=== PATIENT | female | born 1965 | race Caucasian/White ===

== ENCOUNTER 2017-02-19 18:26 | Inpatient (IN) ==
[2017-02-19 19:32] LABS: Bilirubin,Urine Negative (Negative); Blood,Urine Negative (Negative); Clarity,Urine Clear (Clear); Color,Urine Yellow (Yellow); Glucose,Urine (UA) 500 mg/dL (Normal); Ketones,Urine Negative (Negative); Leukocyte Esterase,Urine Negative (Negative); Nitrite,Urine Negative (Negative); Protein,Urine Negative (Neg-Trace); Specific Gravity,Urine 1.018 (1.010-1.025); Urobilinogen,Urine Normal (Normal)
--- NOTE | 2017-02-19 19:34 | Emergency Department Note ---
Disposition Clinical Impression: Depression, Acute anxiety, Suicidal ideation, Anemia, Abnormal liver function tests, Diabetes Disposition: Admitted As Inpatient Referrals: NONE,PCP [Primary Care Provider] - Forms: ED Satisfaction Letter General Adult HPI - General Chief complaint: ED Psychiatric Symptoms Stated complaint: SI/DEPRESSION Time Seen by Provider: 02/19/17 19:33 Source: patient Limitations: no limitations - History of Present Illness HPI Narrative: 51-year-old female reports emergency department complaining of increasing anxiety and depression. The patient reports that she takes several psychiatric medications currently. She reports she has been more anxious and depressed over the last few days. She has been chronically depressed secondary to the of her son about 1 year ago. She feels like she may harm herself but denies any acute physical injury or overdose. There is no history of acute physical complaint. No chest pain charts breath or abdominal pain or vomiting diarrhea or any trouble walking talking hearing seeing or speaking noted or reported. She is 51, there is no history of at this time. The patient lives with her who is at work, he no she is here. She is here with a friend. Pain Scale: 0 - Related Data Home Medications Medication Instructions Recorded Confirmed Buspirone [Buspar] 15 mg PO BID 04/28/15 07/15/15 Citalopram [CeleXA] 40 mg PO QAM 04/28/15 07/15/15 Gabapentin 300 mg PO TID 07/15/15 07/15/15 Lansoprazole [Prevacid] 30 mg PO BID 07/15/15 07/15/15 Lisinopril/Hydrochlorothiazide 1 tab PO QAM 07/15/15 07/15/15 [Lisinopril-Hctz 20-25 mg Tab] Melatonin [Melatin] 6 mg PO HS 07/15/15 07/15/15 Metformin HCl 500 mg PO QAM 07/15/15 07/15/15 Trazodone HCl [Oleptro ER] 150 mg PO HS 07/15/15 07/15/15 Previous Rx's Medication Instructions Recorded ARIPiprazole [Abilify] 2 mg PO DAILY 30 Days tablet 07/19/15 hydrOXYzine pamoate [HydrOXYzine 25 mg PO TID PRN 30 Days capsule 07/19/15 Pamoate] Allergies Allergy/AdvReac Type Severity Reaction Status Date / Time lamotrigine [From Lamictal] Allergy Rash Verified 04/28/15 12:28 quetiapine [From Seroquel] AdvReac See Verified 04/28/15 16:24 Comments All systems ED: reviewed and negative except as stated. Past Medical History - Past Medical History Medical history: Reports: cancer, diabetes, hypertension, other Surgical history: Reports: breast surgery Psychiatric history: Reports: anxiety, depression BIOLOGY MANAGER history: Reports: no BIOLOGY MANAGER history - Social History Smoking Status: Never smoker Smokeless Tobacco Status: No Alcohol use: Reports: none Drug use: Reports: none Physical Exam - General Limitations: no limitations General appearance: alert, anxious - Head Head exam: atraumatic, normocephalic, normal inspection - Eye Eye exam: Present: normal appearance, PERRL, EOMI. Absent: scleral icterus, conjunctival injection - ENT ENT exam: normal exam, normal oropharynx, mucous membranes moist, normal external ear exam - Neck Neck exam: Present: normal inspection, full ROM, trachea midline - Chest Chest inspection: Present: symmetric chest wall rise. Absent: tenderness - Respiratory Respiratory exam: Present: normal lung sounds bilaterally. Absent: respiratory distress, wheezes, stridor, accessory muscle use, prolonged expiratory phase - Cardiovascular Cardiovascular exam: Present: regular rate, normal rhythm, normal heart sounds - Abdominal Exam Abdominal exam: Present: soft, Non-Tender, normal bowel sounds. Absent: tenderness, distention, guarding, rebound, rigidity, Clement's sign, Rovsing's sign, tenderness at McBurney's Point, ascites - Extremities Exam Extremities exam: Present: normal inspection, full ROM, normal capillary refill. Absent: tenderness, pedal edema, joint swelling, calf tenderness - Expanded Lower Extremity Exam Neurovascular/Tendon exam: Present: normal capillary refill. Absent: motor deficit, sensory deficit, tendon deficit, extremity cold to touch, pallor - Back Exam Back exam: Present: normal inspection, full ROM. Absent: tenderness, CVA tenderness (R), CVA tenderness (L), vertebral tenderness - Neurological Exam Neurological exam: Present: alert, oriented X3, CN II-XII intact. Absent: motor sensory deficit - Psychiatric Psychiatric exam: Present: normal affect, normal mood - Skin Skin exam: Present: warm, dry, intact, normal color. Absent: rash, cyanosis, diaphoresis, erythema, pallor, mottled Course Vital Signs Temperature 98.9 F 02/19/17 19:16 Pulse Rate 99 02/19/17 19:16 Respiratory Rate 18 02/19/17 19:16 Blood Pressure 131/87 02/19/17 19:16 O2 Sat by Pulse Oximetry 96 02/19/17 19:16 Temperature 98.9 F 02/19/17 19:16 Pulse Rate 99 02/19/17 19:16 Respiratory Rate 18 02/19/17 19:16 Blood Pressure 131/87 02/19/17 19:16 O2 Sat by Pulse Oximetry 96 02/19/17 19:16 Oxygen Delivery Oxygen Delivery Room Air Medical Decision Making - MDM Narrative Medical decision making narrative: Patient describes anxiety and depression which seems to be worsening, there is concern for suicidal ideation. A psychiatric consultation has been obtained. Psychiatry evaluated the patient and recommends admission. - Lab Data Lab results reviewed: Yes I reviewed the patient's lab results. Result diagrams: 02/19/17 19:41 02/19/17 19:44 Lab Results 02/19/17 02/19/17 02/19/17 Range/Units 18:40 18:40 18:40 WBC (4.3-11.1) K/mcL RBC (3.82-4.97) M/mcL Hgb (11.5-15.4) g/dL Hct (35.3-44.9) % MCV (83.0-100.0) fL MCH (28.0-33.3) pg MCHC (31.6-35.5) g/dL RDW (11.5-14.5) % Plt Count (140-400) K/mcL MPV (9.4-12.4) fL Immature Gran % (0-4) % Seg Neutrophils % % Lymphocytes % % Monocytes % % Eosinophils % % Basophils % % Neutrophils # (1.6-8.9) K/mcL Lymphocytes # (0.6-4.6) K/mcL Monocytes # (0.0-1.3) K/mcL Eosinophils # (0.0-0.6) K/mcL Basophils # (0.0-0.2) K/mcL Sodium (136-145) mEq/L Potassium (3.5-4.5) mEq/L Chloride (98-109) mEq/L Carbon Dioxide (19-29) mEq/L BUN (7-20) mg/dL Creatinine (0.57-1.11) mg/dL Est GFR ( Amer) (> 60) Est GFR (Non-Af Amer) (> 60) BUN/Creatinine Ratio (6-26) Glucose (70-99) mg/dL Calculated Osmolality (280-300) Calcium (8.6-10.8) mg/dL Total Bilirubin (0.2-1.2) mg/dL Direct Bilirubin (0.0-0.5) mg/dL Indirect Bilirubin (0.0-1.2) mg/dL AST (5-34) Units/L ALT (0-55) Units/L Alkaline Phosphatase (38-126) Units/L Serum Total Protein (6.0-8.3) g/dL Albumin (3.5-5.0) g/dL Globulin (2.4-3.5) g/dL Albumin/Globulin Ratio (1.1-2.2) Urine Color Yellow (Yellow) Urine Clarity Clear (Clear) Urine pH 6.0 (5.0-8.0) pH Units Ur Specific [place] 1.018 (1.010-1.025) Urine Protein Negative (Neg-Trace) mg/dL Urine Glucose (UA) 500 H (Normal) mg/dL Urine Ketones Negative (Negative) mg/dL Urine Blood Negative (Negative) Urine Nitrite Negative (Negative) Urine Bilirubin Negative (Negative) Urine Urobilinogen Normal (Normal) mg/dL Ur Leukocyte Esterase Negative (Negative) Urine Test Negative (Negative) Salicylates (15-30) mg/dL Urine Opiates Screen Negative (Twwsnc=244) ng/mL Acetaminophen (10-30) mcg/mL Ur Barbiturates Screen Negative (Cgekpa=068) ng/mL Ur Phencyclidine Scrn Negative (Cutoff=25) ng/mL Ur Amphetamines Screen Negative (Xxuzfo=3658) ng/mL U Benzodiazepines Scrn Negative (Whlypv=175) ng/mL Urine Cocaine Screen Negative (Cutoff= 300) ng/mL U Marijuana (THC) Screen Negative (Cutoff = 50) ng/mL Ethyl Alcohol (0-10) mg/dL 02/19/17 02/19/17 Range/Units 19:41 19:44 WBC 6.9 (4.3-11.1) K/mcL RBC 3.79 L (3.82-4.97) M/mcL Hgb 11.1 L (11.5-15.4) g/dL Hct 33.1 L (35.3-44.9) % MCV 87.3 (83.0-100.0) fL MCH 29.3 (28.0-33.3) pg MCHC 33.5 (31.6-35.5) g/dL RDW 12.9 (11.5-14.5) % Plt Count 188 (140-400) K/mcL MPV 8.7 L (9.4-12.4) fL Immature Gran % 0.4 (0-4) % Seg Neutrophils % 52.0 % Lymphocytes % 35.6 % Monocytes % 8.1 % Eosinophils % 2.9 % Basophils % 1.0 % Neutrophils # 3.6 (1.6-8.9) K/mcL Lymphocytes # 2.5 (0.6-4.6) K/mcL Monocytes # 0.6 (0.0-1.3) K/mcL Eosinophils # 0.2 (0.0-0.6) K/mcL Basophils # 0.1 (0.0-0.2) K/mcL Sodium 135 L (136-145) mEq/L Potassium 4.0 (3.5-4.5) mEq/L Chloride 97 L (98-109) mEq/L Carbon Dioxide 27 (19-29) mEq/L BUN 17 (7-20) mg/dL Creatinine 1.02 (0.57-1.11) mg/dL Est GFR ( Amer) > 60 (> 60) Est GFR (Non-Af Amer) 57 L (> 60) BUN/Creatinine Ratio 17 (6-26) Glucose 208 H (70-99) mg/dL Calculated Osmolality 288 (280-300) Calcium 10.3 (8.6-10.8) mg/dL Total Bilirubin 0.4 (0.2-1.2) mg/dL Direct Bilirubin 0.2 (0.0-0.5) mg/dL Indirect Bilirubin 0.2 (0.0-1.2) mg/dL AST 140 H (5-34) Units/L ALT 125 H (0-55) Units/L Alkaline Phosphatase 133 H (38-126) Units/L Serum Total Protein 8.1 (6.0-8.3) g/dL Albumin 4.0 (3.5-5.0) g/dL Globulin 4.1 H (2.4-3.5) g/dL Albumin/Globulin Ratio 1.0 L (1.1-2.2) Urine Color (Yellow) Urine Clarity (Clear) Urine pH (5.0-8.0) pH Units Ur Specific [place] (1.010-1.025) Urine Protein (Neg-Trace) mg/dL Urine Glucose (UA) (Normal) mg/dL Urine Ketones (Negative) mg/dL Urine Blood (Negative) Urine Nitrite (Negative) Urine Bilirubin (Negative) Urine Urobilinogen (Normal) mg/dL Ur Leukocyte Esterase (Negative) Urine Test (Negative) Salicylates < 5.0 L (15-30) mg/dL Urine Opiates Screen (Uyzdjc=419) ng/mL Acetaminophen < 1.0 L (10-30) mcg/mL Ur Barbiturates Screen (Abmgvy=386) ng/mL Ur Phencyclidine Scrn (Cutoff=25) ng/mL Ur Amphetamines Screen (Ceosen=5389) ng/mL U Benzodiazepines Scrn (Guopme=728) ng/mL Urine Cocaine Screen (Cutoff= 300) ng/mL U Marijuana (THC) Screen (Cutoff = 50) ng/mL Ethyl Alcohol < 10 (0-10) mg/dL
[2017-02-19 19:44] LABS: Amphetamine Screen,Urine Negative ng/mL (Cutoff=1000); Barbiturate Screen,Urine Negative ng/mL (Cutoff=200); Benzodiazepines Screen,Urine Negative ng/mL (Cutoff=200); Cannabinoid Screen,Urine Negative ng/mL (Cutoff = 50); Cocaine Screen,Urine Negative ng/mL (Cutoff= 300); Opiate Screen,Urine Negative ng/mL (Cutoff=300); Phencyclidine Screen,Urine Negative ng/mL (Cutoff=25)
[2017-02-19 19:48] LABS: Basophils # 0.1 K/mcL (0.0-0.2); Eosinophils # 0.2 K/mcL (0.0-0.6); Eosinophils % 2.9 %; Hematocrit 33.1 % (35.3-44.9); Hemoglobin 11.1 g/dL (11.5-15.4); Immature Granulocytes % 0.4 % (0-4); Lymphocytes # 2.5 K/mcL (0.6-4.6); Lymphocytes % 35.6 %; Mean Corpuscular HGB Conc 33.5 g/dL (31.6-35.5); Mean Corpuscular Hemoglobin 29.3 pg (28.0-33.3); Mean Corpuscular Volume 87.3 fL (83.0-100.0); Mean Platelet Volume 8.7 fL (9.4-12.4); Monocytes # 0.6 K/mcL (0.0-1.3); Monocytes % 8.1 %; Neutrophils # 3.6 K/mcL (1.6-8.9); Platelet Count 188 K/mcL (140-400); Red Blood Count 3.79 M/mcL (3.82-4.97); Red Cell Distribution Width 12.9 % (11.5-14.5)
[2017-02-19] MEDS ORDERED: *HR* LORazepam 1 MG TABLET PO ONE (19:49)
[2017-02-19 20:02] LABS: Alanine Aminotransferase 125 Units/L (0-55); Alkaline Phosphatase 133 Units/L (38-126); Aspartate Amino Transferase 140 Units/L (5-34); BUN/Creatinine Ratio 17 (6-26); Bilirubin,Direct 0.2 mg/dL (0.0-0.5); Bilirubin,Indirect 0.2 mg/dL (0.0-1.2); Bilirubin,Total 0.4 mg/dL (0.2-1.2); Blood Urea Nitrogen 17 mg/dL (7-20); Calcium 10.3 mg/dL (8.6-10.8); Carbon Dioxide 27 mEq/L (19-29); Chloride 97 mEq/L (98-109); Globulin 4.1 g/dL (2.4-3.5); Glucose 208 mg/dL (70-99); Osmolality,Calculated 288 (280-300); Sodium 135 mEq/L (136-145); Total Protein 8.1 g/dL (6.0-8.3); eGFR For African Americans > 60 (> 60); eGFR For Non-African Americans 57 (> 60)
[2017-02-19 20:04] LABS: Acetaminophen < 1.0 mcg/mL (10-30)
[2017-02-19 20:05] LABS: Ethanol < 10 mg/dL (0-10); Salicylate < 5.0 mg/dL (15-30)
[2017-02-19] MEDS ORDERED: MOM Conc 10 ML UD.LIQ PO PRN (22:40)
[2017-02-19] MEDS ORDERED: *HR* LORazepam 1 MG TABLET PO PRN (22:40)
[2017-02-19] MEDS ORDERED: *HR* LORazepam 2 MG/ML VIAL IM PRN (22:40)
[2017-02-19] MEDS ORDERED: Haloperidol Lactate 5 MG/ML VIAL IM PRN (22:40)
[2017-02-19] MEDS ORDERED: Mag Hydrox/Al Hydrox/Simeth 30 ML UDC PO PRN (22:40)
[2017-02-19] MEDS ORDERED: hydrOXYzine pamoate 25 MG CAPSULE PO PRN (22:40)
[2017-02-19] MEDS ORDERED: traZODone 50 MG TABLET PO SCH (22:45)
[2017-02-19] MEDS: Gabapentin 300 MG CAPSULE PO SCH (23:28)
[2017-02-19] MEDS: traZODone 50 MG TABLET PO PRN (23:29)
[2017-02-20] MEDS ORDERED: OLANZapine 5 MG TAB.RAPDIS PO ONE (01:30)
[2017-02-20] MEDS: *HR* Metformin 500 MG TABLET PO SCH (09:02)
[2017-02-20] MEDS: Gabapentin 300 MG CAPSULE PO SCH ×3 (09:02→21:36)
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
[2017-02-20] MEDS: traZODone 50 MG TABLET PO SCH (21:35)
[2017-02-20] MEDS: Topiramate 25 MG TABLET PO SCH (21:36)
[2017-02-20] MEDS: OLANZapine 5 MG TAB.RAPDIS PO SCH (21:36)
[2017-02-20] MEDS: traZODone 50 MG TABLET PO PRN (23:51)
[2017-02-21] MEDS: *HR* Metformin 500 MG TABLET PO SCH (09:28)
[2017-02-21] MEDS: Gabapentin 300 MG CAPSULE PO SCH ×3 (09:28→20:59)
[2017-02-21] MEDS: Topiramate 25 MG TABLET PO SCH ×2 (09:28→21:00)
--- NOTE | 2017-02-21 10:24 | Psychiatry Progress Note ---
Date of Encounter: 02/21/17 Time of Encounter: 10:10 Subjective Interval history: Patient seen today , case d/w treatment team and staff, she has been withdrawn mostly in her room and has not attended groups. encouraged her to comply with treatment plan and she agreed to attend groups. she is still depress and withdrawn, sleep off and on , has to take prn meds last night. states i feel numb , i do not feel anything. she denies side effects. finger sticks and diabetic diet requested. will start wellbutrin along with celexa and d/w patient her increase lft , oxycarbamazepine dc and topamax started . Review of Systems Psychiatric: Reports: depression, anxiety, abnormal sleep pattern, suicidal ideation, auditory hallucinations, difficulty concentrating, hopelessness, panic attacks Objective: Exam Patient orientation: Yes Person, Yes Time, Yes Place Level of alertness: Alert Patient appearance: Unkempt Behavior: cooperative, withdrawn Psychomotor activity: Slowed Eye contact: Minimal Contact Mood description: Depressed, Anxious Affect description: dysphoric Speech pattern: Slowed Speech volume: Soft/Quiet Thought process: Slowed Thinking Thought content: Yes Preoccupation, Yes Guilt Judgment: Limited Insight: Partial Results - Vital Signs Vital Signs: Temp Pulse Resp BP Pulse Ox 97.3 F L 103 18 105/74 96 02/20/17 20:43 02/20/17 20:43 02/20/17 20:43 02/20/17 20:43 02/19/17 19:16 Assessment and Plan (1) MDD (major depressive disorder), recurrent, severe, with psychosis Current visit: No Status: Acute Risks, benefits, side effects, alternatives discussed w/pt: Yes Patient agreeable to treatment: Yes (2) Anxiety disorder Current visit: No Status: Acute Risks, benefits, side effects, alternatives discussed w/pt: Yes Patient agreeable to treatment: Yes Qualifiers: Anxiety disorder type: generalized anxiety disorder Qualified Code(s): F41.1 - Generalized anxiety disorder (3) Suicidal ideation Current visit: Yes Status: Acute Risks, benefits, side effects, alternatives discussed w/pt: Yes Patient agreeable to treatment: Yes Consult Discharge Plan - Plan Referrals: NONE,PCP [Primary Care Provider] -
[2017-02-21] MEDS: BuPROPion SR (12 HR) 150 MG TABLET PO SCH (10:47)
[2017-02-21 14:55] LABS: Hemoglobin A1C 9.6 %
[2017-02-21] MEDS: traZODone 50 MG TABLET PO SCH (20:59)
[2017-02-21] MEDS: OLANZapine 5 MG TAB.RAPDIS PO SCH (21:00)
[2017-02-21] MEDS: traZODone 50 MG TABLET PO PRN (21:02)
[2017-02-22] MEDS: Gabapentin 300 MG CAPSULE PO SCH ×4 (09:35→21:18)
[2017-02-22] MEDS: Topiramate 25 MG TABLET PO SCH ×2 (09:35→21:18)
[2017-02-22] MEDS: *HR* Metformin 500 MG TABLET PO SCH (09:35)
[2017-02-22] MEDS: BuPROPion SR (12 HR) 150 MG TABLET PO SCH (09:36)
--- NOTE | 2017-02-22 10:46 | Psychiatry Progress Note ---
Date of Encounter: 02/22/17 Time of Encounter: 10:30 Subjective Interval history: Patient seen today case d/w treatment team and as per team she has been out more and attending groups. She feels better today , sleep is better and slept better last night. denies side effects. still dysphoric but not suicidal , feels hopeless at times and still feels guilt. anxiety is getting in control. start discharge planning. Review of Systems Psychiatric: Reports: depression, anxiety, abnormal sleep pattern, suicidal ideation, auditory hallucinations, difficulty concentrating, hopelessness, panic attacks Objective: Exam Patient orientation: Yes Person, Yes Time, Yes Place Level of alertness: Alert Patient appearance: Appropriate Behavior: cooperative, withdrawn Psychomotor activity: Slowed Eye contact: Maintains Eye Contact Mood description: Anxious Affect description: congruent with mood Speech pattern: Coherent, Slowed Speech volume: Normal Thought process: Intact Thought content: Yes Guilt Judgment: Fair Insight: Full Results - Vital Signs Vital Signs: Temp Pulse Resp BP Pulse Ox 97.4 F L 105 16 116/79 96 02/22/17 09:00 02/22/17 09:00 02/22/17 09:00 02/22/17 09:00 02/19/17 19:16 - Labs Labs: Laboratory Results - last 24 hr 02/21/17 02/21/17 02/22/17 10:51 13:27 06:36 POC Glucose 285 H 250 H Est Mean Plasma Glucose 229 Hemoglobin A1c 9.6 H Assessment and Plan (1) MDD (major depressive disorder), recurrent, severe, with psychosis Current visit: No Status: Acute Risks, benefits, side effects, alternatives discussed w/pt: Yes Patient agreeable to treatment: Yes (2) Anxiety disorder Current visit: No Status: Acute Risks, benefits, side effects, alternatives discussed w/pt: Yes Patient agreeable to treatment: Yes Qualifiers: Anxiety disorder type: generalized anxiety disorder Qualified Code(s): F41.1 - Generalized anxiety disorder (3) Suicidal ideation Current visit: Yes Status: Acute Risks, benefits, side effects, alternatives discussed w/pt: Yes Patient agreeable to treatment: Yes Consult Discharge Plan - Plan Referrals: Birgit Re[facility] [place] - 02/28/17 1:00 pm (The above appointment is with Brenda Woodard for mental health counseling services. You will also see Jurgen Jones for outpatient psychiatric assessment and medication management services on 03/26/2017 at 3:00 PM.) Brenda Balderrama CNP [Advanced Practice Nurse] - 02/26/17 2:30 pm (The above appointment is with Brenda Balderrama for primary health care and medication management services.)
[2017-02-22] MEDS: Ibuprofen 400 MG TABLET PO PRN (11:40)
[2017-02-22] MEDS: traZODone 50 MG TABLET PO SCH (21:19)
[2017-02-22] MEDS: traZODone 50 MG TABLET PO PRN (21:19)
[2017-02-23] MEDS: *HR* Metformin 500 MG TABLET PO SCH (09:28)
[2017-02-23] MEDS: Gabapentin 300 MG CAPSULE PO SCH ×3 (09:29→20:48)
[2017-02-23] MEDS: Topiramate 25 MG TABLET PO SCH ×2 (09:30→20:48)
[2017-02-23] MEDS: BuPROPion SR (12 HR) 150 MG TABLET PO SCH (09:30)
--- NOTE | 2017-02-23 10:47 | Psychiatry Progress Note ---
Date of Encounter: 02/23/17 Time of Encounter: 10:20 Subjective Interval history: Patient seen today case d/w with treatment team , she slept well showing improvement. as per her doing better , today changed and had shower and more pleasant and slept well states took her some time to sleep but once i went to sleep i was sound sleep. she is aware of her high hga1c 9.6, she agreed has not been taking care f her self and now has desire to do so. Her Zyprexa was dc and gabapentin was increased. she denies any side effects . Review of Systems Psychiatric: Reports: depression, anxiety, abnormal sleep pattern, suicidal ideation, auditory hallucinations, difficulty concentrating, hopelessness, panic attacks Objective: Exam Patient orientation: Yes Person, Yes Time, Yes Place Level of alertness: Alert Patient appearance: Appropriate Behavior: calm, cooperative Psychomotor activity: Normal Eye contact: Maintains Eye Contact Mood description: Anxious Affect description: congruent with mood Speech pattern: Coherent Speech volume: Normal Thought process: Intact Thought content: Yes Intact Judgment: Fair Insight: Full Results - Vital Signs Vital Signs: Temp Pulse Resp BP Pulse Ox 97.9 F 96 16 115/74 96 02/22/17 19:57 02/22/17 19:57 02/22/17 19:57 02/22/17 19:57 02/19/17 19:16 - Labs Labs: Laboratory Results - last 24 hr 02/23/17 07:13 POC Glucose 231 H Assessment and Plan (1) MDD (major depressive disorder), recurrent, severe, with psychosis Current visit: No Status: Acute Risks, benefits, side effects, alternatives discussed w/pt: Yes Patient agreeable to treatment: Yes (2) Anxiety disorder Current visit: No Status: Acute Risks, benefits, side effects, alternatives discussed w/pt: Yes Patient agreeable to treatment: Yes Qualifiers: Anxiety disorder type: generalized anxiety disorder Qualified Code(s): F41.1 - Generalized anxiety disorder (3) Suicidal ideation Current visit: Yes Status: Acute Risks, benefits, side effects, alternatives discussed w/pt: Yes Patient agreeable to treatment: Yes Consult Discharge Plan - Plan Referrals: [facility] [place] - 02/28/17 1:00 pm (The above appointment is with Brenda Woodard for mental health counseling services. You will also see Jurgen Jones for outpatient psychiatric assessment and medication management services on 03/26/2017 at 3:00 PM.) Brenda Balderrama CNP [Advanced Practice Nurse] - 02/26/17 2:30 pm (The above appointment is with Brenda Balderrama for primary health care and medication management services.)
[2017-02-23] MEDS: traZODone 50 MG TABLET PO SCH (20:48)
[2017-02-23] MEDS: traZODone 50 MG TABLET PO PRN (20:50)
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
[2017-02-24 09:01] VITALS: BP 130/79
[2017-02-24] MEDS: Topiramate 25 MG TABLET PO SCH (09:04)
[2017-02-24] MEDS: *HR* Metformin 500 MG TABLET PO SCH (09:05)
[2017-02-24] MEDS: BuPROPion SR (12 HR) 150 MG TABLET PO SCH (09:05)
[2017-02-24] MEDS: Gabapentin 300 MG CAPSULE PO SCH (09:06)
[2017-02-24] MEDS: Ibuprofen 400 MG TABLET PO PRN (09:08)
== END 2017-02-24 11:38 | disposition home or self-care (01) | DRG 751 ==
LOC: EMEROO 18:26 → 1ANU 22:29
PROVIDERS: ADMIT Psychiatry & Neurology Psychiatry; ATTEND Psychiatry & Neurology Psychiatry